=== PATIENT | female | born 1945 | race Caucasian/White ===

== ENCOUNTER → 2017-09-04 | Outpatient (CLI) | payer MEDICARE, OTHER ==
[~2017-09-04] MED LIST: ASPIRIN 32325 MG/TAB PO; HYZAAR 50-12.1 UDTAB PO; NORVASC 10MG10 MG PO; XANAX 0.5MG0.5 MG PO; ZETIA 10MG TAB10 MG PO
== END ==
LOC: COL.VAS 08-23 13:00
DX: I08.0 Rheumatic disorders of both mitral and aortic valves (principal)

== ENCOUNTER → 2017-10-16 | Outpatient (CLI) | payer MEDICARE, OTHER | LOC: COL.RAD 10-15 11:15 | DX: K80.20 Calculus of gallbladder without cholecystitis without obstruction (principal); K76.0 Fatty (change of) liver, not elsewhere classified ==

== ENCOUNTER 2018-03-25 12:59 | Inpatient (IN) | payer MEDICARE, OTHER ==
[2018-03-25] VITALS (265 sets, daily range): BP systolic 118–131; BP diastolic 81–89; PULSE 88–134; TEMP 98.4–99.6; O2SAT 87–99
[~2018-03-25] VITALS: Ht 170.2 cm; Wt 89.9 kg
[2018-03-25 14:06] LABS: BASO # 0.1 (0.0-0.2); BASO % 0.9 % (0.0-2.0); EOS # 0.1 (0.0-0.7); EOS % 1.2 % (0-4.0); GRAN % 57.9 % (42.2-75.2); HEMATOCRIT 41.8 % (37.0-47.0); HEMOGLOBIN 14.2 g/dl (12.5-16.0); LYMPH # 2.1 (1.2-3.4); LYMPH % 30.3 % (20.0-51.0); MEAN CELL VOLUME 89 fl (80.0-100.0); MEAN CORPUSCULAR HEMOGLOBIN 30 pg (27.0-31.0); MEAN CORPUSCULAR HGB CONC 34 g/dl (33.0-37.0); MEAN PLATELET VOLUME 10.7 fl (7.4-10.4); MONO # 0.6 (0.1-0.6); MONO % 9.3 % (1.7-9.3); PLATELET COUNT 207 K/mm3 (130-400); REDCELL DISTRIBUTION WIDTH-CV 13.4 % (11.5-14.5)
[2018-03-25 14:12] LABS: PARTIAL THROMBOPLASTIN TIME 32.7 SECONDS (26.0-37.0)
[2018-03-25 14:14] LABS: CALCIUM 9.2 mg/dL (8.4-10.2); CREATININE, serum 0.79 mg/dL (0.52-1.25); POTASSIUM 3.6 mmol/L (3.4-5.0)
[2018-03-25 14:44] LABS: THYROID STIMULATING HORMONE 0.482 uIU/mL (0.465-4.680)
[2018-03-25] MEDS ORDERED: CRANBERRY450 MG PO (14:50)
[2018-03-25] MEDS ORDERED: MULTIVITAMIN SEN PO (14:51)
[2018-03-25] MEDS ORDERED: VITAMIN C500 MG PO (14:52)
[2018-03-25] MEDS ORDERED: LUTEIN6 MG PO (14:52)
[2018-03-25] MEDS ORDERED: PROBIOTIC FORMU1 CAP PO (14:55)
[2018-03-25] MEDS ORDERED: POTASSIUM/MAGNESIUM PO (14:55)
[2018-03-25] MEDS ORDERED: HAIRSKINNAILS PO (14:56)
[2018-03-25] MEDS ORDERED: EPA FISH OIL1 SGL PO (14:57)
[2018-03-25] MEDS ORDERED: PREMARIN VAG42.5 GM VG (14:57)
[2018-03-25] MEDS ORDERED: FLONASEALLERGY NS (14:58)
[2018-03-25] MEDS ORDERED: CALCIUM 600-D 61 TAB PO (14:59)
[2018-03-25] MEDS ORDERED: VITAMIN D 1001000 IU PO (15:00)
[2018-03-25] MEDS ORDERED: LEXAPRO 10MG10 MG PO (15:00)
[2018-03-25] MEDS ORDERED: ZANTAC 150MG T150 MG PO (15:01)
[2018-03-26] VITALS (747 sets, daily range): BP systolic 103–137; BP diastolic 64–83; PULSE 72–106; TEMP 97.9–98.2; O2SAT 83–100
[2018-03-26] MEDS ORDERED: MULTAQ400 MG PO (15:05)
[2018-03-26] MEDS ORDERED: ELIQUIS 5MG PO (15:07)
[2018-03-26] MEDS ORDERED: ASPIRIN 81M81 MG/TA2 PO (15:11)
== END 2018-03-26 16:15 | disposition home or self-care (01) | DRG 309 ==
LOC: IMCU 12:59 → ICU 13:14
PROVIDERS: Internal Medicine
PROC: 5A2204Z Restoration of Cardiac Rhythm, Single (ICD-10-PCS; principal; 2018-03-26)
DX: I48.91 Unspecified atrial fibrillation (principal); J84.9 Interstitial pulmonary disease, unspecified; I10 Essential (primary) hypertension; I08.3 Combined rheumatic disorders of mitral, aortic and tricuspid valves; G47.30 Sleep apnea, unspecified; Z87.891 Personal history of nicotine dependence
CPT/HCPCS: 99223-AI; 99239; G9654; J1644; J2704; J7050

== ENCOUNTER → 2021-01-10 | Outpatient (CLI) | payer MEDICARE, OTHER ==
[~2021-01-10] MED LIST changes: +ALLEGRA 60MG TA60 MG PO; +ASPIRIN 81M81 MG/TA2 PO; +BETAPACE 80MG80 MG PO; +CALCIUM 600-D 61 TAB PO; +CRANBERRY450 MG PO; +ELIQUIS 5MG PO; +EPA FISH OIL1 SGL PO; +FLONASEALLERGY NS; +HAIRSKINNAILS PO; +LEXAPRO 10MG10 MG PO; +LUTEIN6 MG PO; +MULTAQ400 MG PO; +MULTIVITAMIN SEN PO; +POTASSIUM/MAGNESIUM PO; +PREMARIN VAG42.5 GM VG; +PROBIOTIC FORMU1 CAP PO; +TOPROL XL 50MG50 MG PO; +VITAMIN C500 MG PO; +VITAMIN D 1001000 IU PO; +ZANTAC 150MG T150 MG PO
== END ==
LOC: ZCOL.LAB 14:15
DX: Z01.812 Encounter for preprocedural laboratory examination (principal); Z20.822 Contact with and (suspected) exposure to COVID-19

== ENCOUNTER → 2022-07-19 | Outpatient (CLI) | payer MEDICARE, OTHER ==
[~2022-07-19] MED LIST changes: +ALL DAY ALLERGY10 M3 PO; +AMOXICILLIN 25250 MG PO; +COMPLETE SENIOR1 TA1 PO; +COZAAR 50MG50 MG/TAB PO; +CRANBERRY250 MG PO; -CRANBERRY450 MG PO; +CYTOXAN1 GM IV; +D MANNOSE; +HCTZ12.5TAB PO; -HYZAAR 50-12.1 UDTAB PO; +LEVAQUIN 750MG750 M1 PO; +MASON NATURAL2000 IU PO; +MIRALAX PA17 GM/Dose PO; -MULTIVITAMIN SEN PO; +PEPCID 20MG TAB20 MG PO; -PROBIOTIC FORMU1 CAP PO; +PROBIOTIC-MAJOR PO; +ROXICODONE 55 MG/TAB PO; +SENNA-S 50 MG-81 TAB PO; +TYLENOL 500MG500 MG PO; -VITAMIN D 1001000 IU PO; +XYZAL5 MG PO; +ZOFRAN8 MG PO; +ZYPREXA 5MG5 MG PO; +[UNRECOGNIZED DRUG - CODE]
[2022-07-19 08:26] LABS: BASO % 4.2 % (0.0-2.0); EOS # 0.1 K/mm3 (0.0-0.7); GRAN % 2.9 % (42.2-75.2); HEMATOCRIT 41.1 % (37.0-47.0); HEMOGLOBIN 14.3 g/dl (12.5-16.0); LYMPH # 0.6 K/mm3 (1.2-3.4); LYMPH % 80.3 % (20.0-51.0); MEAN CELL VOLUME 91 fl (80.0-100.0); MEAN CORPUSCULAR HEMOGLOBIN 32 pg (27-31); MEAN CORPUSCULAR HGB CONC 35 g/dl (33.0-37.0); MEAN PLATELET VOLUME 11.4 fl (7.4-10.4); MONO % 4.2 % (1.7-9.3); PLATELET COUNT 85 K/mm3 (130-400); REDCELL DISTRIBUTION WIDTH-CV 12.5 % (11.5-14.5)
[2022-07-19 08:36] LABS: ALBUMIN 3.5 gm/dL (3.4-4.8); BILIRUBIN,TOTAL 1.2 mg/dL (0.2-1.2); CALCIUM 9.2 mg/dL (8.4-10.2); CREATININE, serum 0.9 mg/dL (0.57-1.11); POTASSIUM 4.4 mmol/L (3.5-4.5)
== END ==
LOC: COL.LAB 07:57
DX: C50.411 Malignant neoplasm of upper-outer quadrant of right female breast (principal)

== ENCOUNTER 2022-07-21 09:02 | Outpatient (CLI) | payer MEDICARE, OTHER ==
[~2022-07-21] VITALS: Ht 170.3 cm; Wt 88.0 kg
[~2022-07-21 09:02] MED LIST changes: -ALL DAY ALLERGY10 M3 PO; -AMOXICILLIN 25250 MG PO; -CYTOXAN1 GM IV; -D MANNOSE; -HCTZ12.5TAB PO; -LEVAQUIN 750MG750 M1 PO; -MIRALAX PA17 GM/Dose PO; -PEPCID 20MG TAB20 MG PO; -ROXICODONE 55 MG/TAB PO; -SENNA-S 50 MG-81 TAB PO; -TYLENOL 500MG500 MG PO; -XYZAL5 MG PO; -ZOFRAN8 MG PO; -ZYPREXA 5MG5 MG PO; -[UNRECOGNIZED DRUG - CODE]
[2022-07-21 09:43] VITALS: BP 114/69; PULSE 73; TEMP 98.8
[2022-07-21] MEDS ORDERED: BETAPACE 80MG80 MG PO (11:55)
[2022-07-21] MEDS ORDERED: SENNA-S 50 MG-81 TAB PO (11:56)
[2022-07-21] MEDS ORDERED: XYZAL5 MG PO (11:56)
[2022-07-21] MEDS ORDERED: ZOFRAN8 MG PO (11:57)
[2022-07-21] MEDS ORDERED: MIRALAX PA17 GM/Dose PO (11:57)
[2022-07-21] MEDS ORDERED: ALL DAY ALLERGY10 M3 PO (11:58)
[2022-07-21] MEDS ORDERED: PEPCID 20MG TAB20 MG PO (11:59)
[2022-07-21] MEDS ORDERED: HCTZ12.5TAB PO (11:59)
[2022-07-21] MEDS ORDERED: D MANNOSE (12:00)
[2022-07-21] MEDS ORDERED: [UNRECOGNIZED DRUG - CODE] (12:01)
[2022-07-21] MEDS ORDERED: AMOXICILLIN 25250 MG PO (12:01)
[2022-07-21] MEDS ORDERED: CYTOXAN1 GM IV (12:02)
[2022-07-21] MEDS ORDERED: TYLENOL 500MG500 MG PO (12:02)
[2022-07-21] MEDS ORDERED: ZYPREXA 5MG5 MG PO (12:03)
[2022-07-21 12:18] VITALS: BP 126/78; PULSE 61
--- NOTE | 2022-07-21 12:18 | NUR ---
Report received from Cielo JACOBSEN. PT is resting on cot, awake and alert, pwd with reg and unlabored respirations. No distress. pt provided water and juice, is able to swallow with no problem. Pt's brought back to bs. pt and updated on poc. call light in reach.
[2022-07-21 12:30] VITALS: BP 129/67; PULSE 75
[2022-07-21 12:45] VITALS: BP 120/61; PULSE 78
[2022-07-21 13:00] VITALS: BP 121/62; PULSE 74
--- NOTE | 2022-07-21 13:44 | NUR ---
Pt did well during her recovery after FARHAN. Dr. Hinkle has been back to bs to discuss test result and poc. Pt has been up and is amb in room and to bathroom and back, with steady gait. I have reviewed dc/fu instructions with pt and , both verbalize understanding. Pt is escorted to exit via wheelchair.
[2022-08-01] MEDS ORDERED: LEVAQUIN 750MG750 M1 PO (10:16)
[2022-08-01] MEDS ORDERED: ROXICODONE 55 MG/TAB PO (10:16)
== END 2022-07-21 13:44 | disposition home or self-care (01) ==
LOC: COL.RAD 09:02
DX: I35.0 Nonrheumatic aortic (valve) stenosis (principal)
CPT/HCPCS: J2704

== ENCOUNTER → 2022-07-24 | Outpatient (CLI) | payer MEDICARE, OTHER ==
[~2022-07-24] MED LIST changes: +ALL DAY ALLERGY10 M3 PO; +AMOXICILLIN 25250 MG PO; +CYTOXAN1 GM IV; +D MANNOSE; +HCTZ12.5TAB PO; +LEVAQUIN 750MG750 M1 PO; +MIRALAX PA17 GM/Dose PO; +PEPCID 20MG TAB20 MG PO; +ROXICODONE 55 MG/TAB PO; +SENNA-S 50 MG-81 TAB PO; +TYLENOL 500MG500 MG PO; +XYZAL5 MG PO; +ZOFRAN8 MG PO; +ZYPREXA 5MG5 MG PO; +[UNRECOGNIZED DRUG - CODE]
[2022-07-24 09:09] LABS: HEMATOCRIT 39.4 % (37.0-47.0); HEMOGLOBIN 13.7 g/dl (12.5-16.0); MEAN CELL VOLUME 90 fl (80.0-100.0); MEAN CORPUSCULAR HEMOGLOBIN 31 pg (27-31); MEAN CORPUSCULAR HGB CONC 35 g/dl (33.0-37.0); MEAN PLATELET VOLUME 10.3 fl (7.4-10.4); PLATELET COUNT 154 K/mm3 (130-400); RED BLOOD COUNT 4.37 M/mm3 (4.10-5.30); REDCELL DISTRIBUTION WIDTH-CV 12.3 % (11.5-14.5)
[2022-07-24 09:22] LABS: ALBUMIN 3.4 gm/dL (3.4-4.8); BILIRUBIN,TOTAL 0.3 mg/dL (0.2-1.2); CALCIUM 9.7 mg/dL (8.4-10.2); CREATININE, serum 0.8 mg/dL (0.57-1.11); POTASSIUM 3.8 mmol/L (3.5-4.5); TOTAL PROTEIN 7.1 gm/dL (6.2-8.1)
[2022-07-24 10:17] LABS: BAND 25 % (0-10); BASOPHIL 1 % (0-2); METAMYELOCYTE 5 % (0-0); NEUTROPHILS 28 % (42.0-75.2)
[2022-07-24 10:18] LABS: ANISOCYTOSIS 1+; PLATELET ESTIMATE NORMAL (NORMAL); POLYCHROMASIA 1+
[2022-07-24 10:20] LABS: LYMPHOCYTE 21 % (20.0-51.0)
[2022-07-26 08:02] LABS: PATHOLOGY DIFF REVIEW OK
== END ==
LOC: COL.LAB 07:59
DX: C50.411 Malignant neoplasm of upper-outer quadrant of right female breast (principal)

== ENCOUNTER 2024-07-20 12:33 | Emergency (ER) | payer MEDICARE, OTHER ==
[~2024-07-20] VITALS: Ht 170.2 cm; Wt 72.4 kg
[~2024-07-20 12:33] MED LIST changes: +ALIVE HAIR, SK1 EACH PO; +ASPIRIN E.C. 8181 MG PO; +CALCIUM 600600 MG PO; +PLAVIX 75MG TAB75 MG PO; +URITRAX47 GM PO; +ZYRTEC 10MG10 MG PO
[2024-07-20 13:08] LABS: BASO # 0.1 K/mm3 (0.0-0.2); BASO % 0.6 % (0.0-2.0); EOS # 0.1 K/mm3 (0.0-0.7); EOS % 1.2 % (0.0-4.0); HEMATOCRIT 43.1 % (37.0-47.0); HEMOGLOBIN 14.4 g/dl (12.5-16.0); LYMPH # 2.2 K/mm3 (1.2-3.4); MEAN CELL VOLUME 100 fl (80.0-100.0); MEAN CORPUSCULAR HEMOGLOBIN 33 pg (27-31); MEAN CORPUSCULAR HGB CONC 33 g/dl (33.0-37.0); MONO # 1.1 K/mm3 (0.1-0.6); MONO % 12.8 % (1.7-9.3); PLATELET COUNT 144 K/mm3 (130-400); RED BLOOD COUNT 4.31 M/mm3 (4.10-5.30); REDCELL DISTRIBUTION WIDTH-CV 14.6 % (11.5-14.5)
[2024-07-20 13:10] LABS: INR 1.7 (0.8-3.0); PROTHROMBIN TIME 17.8 SECONDS (9.7-12.8)
[2024-07-20 13:13] LABS: PARTIAL THROMBOPLASTIN TIME 35.4 SECONDS (26.0-37.0)
[2024-07-20 13:21] LABS: ALBUMIN 3.4 g/dL (3.4-4.8); BILIRUBIN,TOTAL 0.8 mg/dL (0.2-1.2); CALCIUM 9.2 mg/dL (8.4-10.2); CREATININE, serum 0.91 mg/dL (0.57-1.11); POTASSIUM 4.5 mEq/L (3.5-4.5); TOTAL PROTEIN 6.9 g/dl (6.2-8.1)
[2024-07-20 13:33] LABS: TROPONIN-I 0.059 ng/mL (0.00-0.033)
[2024-07-20] MEDS ORDERED: NS 1,000 ML IV ONE (14:00)
[2024-07-20] MEDS ORDERED: DOPamine/Dextrose 5%-Water 250 ML IV ONE (14:45)
[2024-07-20 15:44] VITALS: BP 141/59; PULSE 35; TEMP 97.9
== END 2024-07-20 16:52 | disposition short-term general hospital (02) ==
LOC: COL.ER 12:33
PROVIDERS: Family Medicine
DX: I44.2 Atrioventricular block, complete (principal); I48.91 Unspecified atrial fibrillation; R79.89 Other specified abnormal findings of blood chemistry; Z95.4 Presence of other heart-valve replacement; Z79.899 Other long term (current) drug therapy; Z79.01 Long term (current) use of anticoagulants
CPT/HCPCS: J7030